=== PATIENT | male | born 1960 | race Caucasian/White ===

== ENCOUNTER → 2024-02-08 06:22 | Day surgery (SDC) | payer MEDICAID, SELFPAY | LOC: GI 06:22 | PROVIDERS: ATTENDING PHYSICIAN Internal Medicine Gastroenterology | DX: Z12.11 Encounter for screening for malignant neoplasm of colon (principal); Z86.010 Personal history of colon polyps; K64.8 Other hemorrhoids; D12.2 Benign neoplasm of ascending colon | CPT/HCPCS: 45380; 88305 ==